=== PATIENT | male | born 1955 | race Caucasian/White ===

== ENCOUNTER 2019-03-01 09:51 | Outpatient (REF) | payer BC, SELFPAY ==
[2019-03-01 20:34] LABS: HCT 44.1 % (40.0-50.0); HGB 15.3 g/dL (13.5-17.5); Mean Corp. HGB Concentration 34.7 g/dL (32.0-36.0); Mean Corpuscular Hemoglobin 31.7 pg (27.0-33.0); Mean Corpuscular Volume 91.3 fL (80-95); Mean Platelet Volume 12.3 fL (8.0-11.0); Platelet Count 177 x1000/uL (130-400); RBC 4.83 m/cumm (4.50-6.00); RBC Distribution Width 12.7 % (11.8-14.1); White Blood Cell Count 5.24 k/cumm (4.4-10.8)
[2019-03-01 20:35] LABS: Calculated LDL 185 mg/dL; Cholesterol 272 mg/dL (50-200); HDL Cholesterol 47 mg/dL (40-60); Triglyceride 203 mg/dL (30-150)
[2019-03-01 21:40] LABS: ESR 7 mm/hr (1-20)
[2019-03-02 16:34] LABS: CRP, High Sensitivity 0.69 mg/L
== END 2019-03-01 10:11 ==
LOC: NCHCN 09:51
PROVIDERS: PCP Physician Assistant; Visit Provider Nurse Practitioner Family
DX: M35.3 Polymyalgia rheumatica (principal); Z13.220 Encounter for screening for lipoid disorders
CPT/HCPCS: 80061; 83721; 85027; 85652; 86141

== ENCOUNTER 2021-04-27 15:54 | Outpatient (REF) | payer MEDICARE, BC, SELFPAY ==
[2021-04-26 18:45] LABS: Anion Gap 5.5 mmol/L (3-11); BUN 17 mg/dL (7-18); CO2 30.5 mmol/L (21.0-32.0); Calcium 8.9 mg/dL (8.5-10.1); Chloride 102 mmol/L (98-107); Glucose 128 mg/dL (74-106); Potassium 4.9 mmol/L (3.5-5.1); Sodium 138 mmol/L (136-145)
== END 2021-04-27 15:55 | disposition home or self-care (01) ==
LOC: NCHCN 15:54
PROVIDERS: PCP Physician Assistant; Visit Provider Physician Assistant
DX: I10 Essential (primary) hypertension (principal)
CPT/HCPCS: 80048

== ENCOUNTER 2021-09-04 09:10 | Outpatient (REF) | payer OTHER, SELFPAY ==
[2021-09-04 20:01] LABS: Hemoglobin A1C 5.6 % (<5.7)
== END 2021-09-04 09:11 | disposition home or self-care (01) ==
LOC: NCHCN 09:10
PROVIDERS: PCP Physician Assistant; Visit Provider Physician Assistant
DX: R73.09 Other abnormal glucose (principal)
CPT/HCPCS: 83036

== ENCOUNTER 2022-10-03 08:07 | Outpatient (REF) | payer OTHER, SELFPAY ==
[2022-10-03 19:32] LABS: ALT 28 U/L (16-63); AST 15 U/L (15-37); Albumin 3.8 g/dL (3.4-5.0); Alkaline Phosphatase 93 U/L (46-116); BUN 16 mg/dL (7-18); Bilirubin, Total 0.3 mg/dL (0.2-1.0); CREATININE 0.9 mg/dL (0.70-1.30); Calcium 9.2 mg/dL (8.5-10.1); Calculated LDL 143 mg/dL (<100); Chloride 105 mmol/L (98-107); Cholesterol 239 mg/dL (<200); Estimated GFR 93.61 (mL/min/1.73m2); Glucose 116 mg/dL (74-106); HDL Cholesterol 65 mg/dL (40-60); Potassium 4.1 mmol/L (3.5-5.1); Sodium 143 mmol/L (136-145); Triglyceride 159 mg/dL (<150)
== END 2022-10-03 08:08 | disposition home or self-care (01) ==
LOC: NCHCN 08:07
PROVIDERS: PCP Physician Assistant; Visit Provider Physician Assistant
DX: E78.5 Hyperlipidemia, unspecified (principal); R73.03 Prediabetes; I10 Essential (primary) hypertension
CPT/HCPCS: 80053; 80061; 83036

== ENCOUNTER 2023-01-09 12:26 | Outpatient (REF) | payer OTHER, SELFPAY | END 2023-01-09 12:27 | disposition home or self-care (01) | LOC: NCHCN 12:26 | PROVIDERS: PCP Physician Assistant; Visit Provider Physician Assistant | DX: I10 Essential (primary) hypertension (principal); R00.2 Palpitations | CPT/HCPCS: 84443 ==

== ENCOUNTER 2023-04-16 21:26 | Outpatient (REF) | payer OTHER, SELFPAY ==
[2023-04-17 19:21] LABS: PSA, Screening 0.2 ng/mL (<=4.5)
== END 2023-04-16 21:27 | disposition home or self-care (01) ==
LOC: NCHCN 21:26
PROVIDERS: PCP Physician Assistant; Visit Provider Physician Assistant
DX: N40.0 Benign prostatic hyperplasia without lower urinary tract symptoms (principal); R35.1 Nocturia; Z12.5 Encounter for screening for malignant neoplasm of prostate
CPT/HCPCS: 84153

== ENCOUNTER 2023-07-21 18:41 | Outpatient (REF) | payer OTHER, SELFPAY ==
[2023-07-21 18:52] LABS: HCT 45.2 % (40.0-50.0); HGB 15.8 g/dL (13.5-17.5); MCH 31.4 pg (27.0-33.0); MCV 90 fL (80-95); MPV 12.1 fL (8.0-11.0); Platelet Count 165 10^3/uL (130-400); RBC 5.03 10^6/uL (4.36-5.78); RDW 12.1 % (11.8-14.1); RDW-SD 39.6 fL; WBC 7.76 10^3/uL (4.4-10.8)
[2023-07-21 19:03] LABS: ALT 56 U/L (16-63); AST 19 U/L (15-37); Albumin 4.6 g/dL (3.4-5.0); Alkaline Phosphatase 83 U/L (46-116); Anion Gap 8.9 mmol/L (3-11); BUN 17 mg/dL (7-18); Bilirubin, Total 0.7 mg/dL (0.2-1.0); C-Reactive Protein 0.07 mg/dL (0.0-0.3); CO2 30.1 mmol/L (21.0-32.0); CREATININE 0.8 mg/dL (0.70-1.30); Calcium 9.7 mg/dL (8.5-10.1); Chloride 102 mmol/L (98-107); Glucose 101 mg/dL (74-106); Sodium 141 mmol/L (136-145); Total Protein 8.1 g/dL (6.4-8.2)
== END 2023-07-21 18:42 | disposition home or self-care (01) ==
LOC: NCHCN 18:41
PROVIDERS: PCP Physician Assistant; Visit Provider Nurse Practitioner Family
DX: M62.81 Muscle weakness (generalized) (principal)
CPT/HCPCS: 80053; 85027; 86140

== ENCOUNTER 2023-07-23 08:36 | Outpatient (REF) | payer OTHER, SELFPAY ==
[2023-07-23 19:16] LABS: ESR 7 mm/hr (0-20)
[2023-07-23 19:40] LABS: Creatine Kinase 56 U/L (39-308); FREE T4 0.95 ng/dL (0.76-1.46); LDH 228 U/L (85-227); TSH 2.22 uIU/mL (0.36-3.74)
== END 2023-07-23 08:37 | disposition home or self-care (01) ==
LOC: NCHCN 08:36
PROVIDERS: PCP Physician Assistant; Visit Provider Internal Medicine
DX: M79.18 Myalgia, other site (principal)
CPT/HCPCS: 82533; 82550; 85652; 83615; 84439; 84443

== ENCOUNTER 2024-02-18 11:25 | Outpatient (CLI) | payer OTHER, SELFPAY ==
--- NOTE | 2024-02-18 11:15 | DI.RAD_ITS ---
Exam(s) XR KNEE LT 1V XR STANDING ALIGNMENT XR KNEE RT 1V EXAM: XR STANDING ALIGNMENT and XR knee bilateral 1 V CLINICAL HISTORY: TKR Planning. TECHNIQUE: 2D digital imaging was performed. Six images were obtained. COMPARISON: DX XR KNEE 4V RT from 12/04/2022 CR XR BONE LENGTH STUDIES from 06/10/2023 FINDINGS: BONES: Mild degenerative changes are seen in the hips bilaterally characterized by joint space narrow ing. In the right knee, there are degenerative changes involving all 3 joint compartments can't catie acterized by joint space narrowing and osteophytes. The findings are most marked at the patellofemor al and medial femoral tibial joint. There is a joint effusion. In the left knee, degenerative saavedra es are seen involving all 3 joint compartments characterized by joint space narrowing and osteophytes . The findings are most marked in the medial femoral tibial joint. There is a moderate joint effusi on. Enthesophytes are seen at the superior patella. Soft tissue calcifications are seen anterior to the anterior tibial tuberosity.. Degenerative changes are seen in the right ankle.There is no signi ficant leg length discrepancy. SOFT TISSUE: Normal. IMPRESSION: Marked osteoarthritis of the knees bilaterally as described above. DATA REPOSITORY: RADIATION DOSE DELIVERED:
== END 2024-02-18 11:26 | disposition home or self-care (01) ==
LOC: DIORS 11:25
PROVIDERS: PCP Internal Medicine; Referring Provider Internal Medicine; Visit Provider Student in an Organized Health Care Education/Training Program
DX: M17.11 Unilateral primary osteoarthritis, right knee; M17.12 Unilateral primary osteoarthritis, left knee
CPT/HCPCS: 99203; 73560; 77073

== ENCOUNTER 2024-04-13 18:46 | Outpatient (REF) | payer OTHER, SELFPAY ==
[2024-04-14 11:59] LABS: Anion Gap 4.1 mmol/L (3-11); BUN 15 mg/dL (7-18); CO2 31.9 mmol/L (21.0-32.0); CREATININE 0.9 mg/dL (0.70-1.30); Calcium 9.6 mg/dL (8.5-10.1); Chloride 105 mmol/L (98-107); Estimated GFR 92.45 (mL/min/1.73m2); Glucose 126 mg/dL (74-106); HCT 43.6 % (40.0-50.0); HGB 15.1 g/dL (13.5-17.5); MCHC 34.6 % (32.0-36.0); MCV 92 fL (80-95); MPV 12.6 fL (8.0-11.0); Platelet Count 162 10^3/uL (130-400); Potassium 5.1 mmol/L (3.5-5.1); RBC 4.72 10^6/uL (4.36-5.78); RDW 12.3 % (11.8-14.1); RDW-SD 42.1 fL; Sodium 141 mmol/L (136-145); WBC 4.65 10^3/uL (4.4-10.8)
== END 2024-04-13 18:47 | disposition home or self-care (01) ==
LOC: LBN 18:46
PROVIDERS: PCP Internal Medicine; Visit Provider Student in an Organized Health Care Education/Training Program
DX: M17.0 Bilateral primary osteoarthritis of knee (principal)
CPT/HCPCS: 80048; 85027